=== PATIENT | female | born 1995 | race Caucasian/White ===

== ENCOUNTER 2017-12-10 11:07 | Outpatient (CLI) | payer MEDICAID | END 2017-12-10 13:17 | disposition home or self-care (01) | LOC: OBT 11:07 → L-D 11:08 → OBT 13:17 | DX: O76 Abnormality in fetal heart rate and rhythm complicating labor and delivery (principal); Z3A.39 39 weeks gestation of pregnancy | CPT/HCPCS: 76818 ==

== ENCOUNTER 2017-12-13 12:36 | Outpatient (CLI) | payer MEDICAID | END 2017-12-13 15:00 | disposition home or self-care (01) | LOC: OBT 12:36 → L-D 12:37 → OBT 15:00 | DX: O76 Abnormality in fetal heart rate and rhythm complicating labor and delivery (principal); Z3A.39 39 weeks gestation of pregnancy | CPT/HCPCS: 76818 ==

== ENCOUNTER 2017-12-14 23:45 | Inpatient (IN) | payer MEDICAID ==
[2017-12-15] MEDS ORDERED: LACTATED RINGER'S 1,000 ML IV (00:47)
[2017-12-15] MEDS ORDERED: MISOPROSTOL 200 MCG TAB PR ×2 (01:00→17:30)
[2017-12-15] MEDS ORDERED: CARBOPROST 250 MCG INJ IM ×2 (01:00→17:30)
[2017-12-15] MEDS ORDERED: BUTORPHANOL 1 MG INJ IV (01:00)
[2017-12-15] MEDS ORDERED: BUTORPHANOL 2 MG INJ IV (01:00)
[2017-12-15] MEDS ORDERED: METHYLERGONOVINE 0.2 MG INJ IM ×2 (01:00→17:30)
[2017-12-15] MEDS ORDERED: OXYTOCIN 30 UNITS/LR 500 ML IV ×2 (01:00→17:30)
[2017-12-15] MEDS: LACTATED RINGER'S 1,000 ML IV ×4 (01:10→09:30)
[2017-12-15 01:41] LABS: ADD MAN DIFF? NO
[2017-12-15 01:46] LABS: BASOPHIL # 0.1 10^3/ul (0.0-0.1); BASOPHILS % 0.4 % (0.0-2.0); EOSINOPHILS # 0.1 10^3/ul (0.0-0.5); EOSINOPHILS % 0.6 % (0.0-7.0); HEMATOCRIT 35.7 % (37.0-47.0); LYMPHOCYTES # 2.3 10^3/ul (0.8-2.9); LYMPHOCYTES % 17.2 % (15.0-51.0); MEAN CORPUSCULAR HEMOGLOBIN 28.7 pg (29.0-33.0); MEAN CORPUSCULAR HGB CONC 33.6 g/dl (32.0-37.0); MEAN CORPUSCULAR VOLUME 85.4 fl (82.0-101.0); MONOCYTES % 7.2 % (0.0-11.0); NEUTROPHIL # 9.8 10^3/ul (1.6-7.5); NEUTROPHILS % 74.2 % (39.0-77.0); PLATELET COUNT 317 10^3/UL (140-415); RED BLOOD COUNT 4.18 10^6/ul (4.20-5.40); RED CELL DISTRIBUTION WIDTH 14.5 % (11.5-14.5)
[2017-12-15 01:46] LABS: WHITE BLOOD COUNT 13.2 10^3/ul (4.8-10.8)
[2017-12-15 02:07] LABS: INR 0.96; PROTIME 12.9 Sec (11.9-14.9)
[2017-12-15 02:32] LABS: HEPATITIS B SURFACE ANTIGEN NEGATIVE (NEGATIVE)
[2017-12-15] MEDS ORDERED: FENTAnyl 2MCG/ML-ROPIV 0.2% 100 ML (04:46)
[2017-12-15] MEDS: FENTAnyl 2MCG/ML-ROPIV 0.2% 100 ML BAG EPI (07:17)
[2017-12-15] MEDS ORDERED: NALOXONE (0.4 MG/ML) INJ IV (07:30)
[2017-12-15] MEDS ORDERED: TERBUTALINE 1 ML (08:25)
[2017-12-15] MEDS: TERBUTALINE 1 MG/ML INJ SC (08:30)
[2017-12-15] MEDS: OXYTOCIN 30 UNITS/LR 500 ML IV ×3 (13:25→14:45)
[2017-12-15] MEDS: LIDOCAINE 1% (MPF) 30 ML INJ INJ (13:26)
[2017-12-15] MEDS: MINERAL OIL LIGHT 10 ML VIAL TOP (13:27)
[2017-12-15] MEDS ORDERED: HYDROCODONE/APAP (5/325) TAB PO (17:30)
[2017-12-15] MEDS ORDERED: ZOLPIDEM 5 MG TAB PO (17:30)
[2017-12-15] MEDS: BENZOCAINE 20% 56 ML SPRAY TOP (17:34)
[2017-12-15] MEDS: LANOLIN 7 GM TUBE TOP (17:35)
[2017-12-15] MEDS: DIBUCAINE 1% 30 GM OINT PR (17:35)
[2017-12-15] MEDS: CEPHALEXIN 500 MG CAP PO ×2 (17:35→23:25)
[2017-12-15] MEDS: WITCH HAZEL/GLYCERIN PAD PR (17:39)
[2017-12-15] MEDS: IBUPROFEN 600 MG TAB PO ×2 (17:39→23:25)
[2017-12-15] MEDS: LACTATED RINGER'S 1,000 ML IV* (19:07)
[2017-12-15] MEDS: SENNA/DOCUSATE NA (8.6MG/50MG) TAB PO (21:15)
[2017-12-15] MEDS: MAGNESIUM HYDROXIDE 30ML CUP PO (21:15)
[2017-12-15 22:12] LABS: RAPID PLASMA REAGIN NONREACTIVE (NR)
[2017-12-16] MEDS: IBUPROFEN 600 MG TAB PO ×4 (05:43→23:50)
[2017-12-16] MEDS: CEPHALEXIN 500 MG CAP PO ×4 (05:44→23:50)
[2017-12-16] MEDS: LACTATED RINGER'S 1,000 ML IV* ×3 (08:46→17:19)
[2017-12-16] MEDS: MAGNESIUM HYDROXIDE 30ML CUP PO ×2 (09:13→21:36)
[2017-12-16] MEDS: SENNA/DOCUSATE NA (8.6MG/50MG) TAB PO ×2 (09:13→21:37)
[2017-12-16] MEDS: HYDROCODONE/APAP (5/325) TAB PO (09:14)
[2017-12-16] MEDS: SERTRALINE 50 MG TAB PO (09:14)
[2017-12-16 09:31] LABS: ADD MAN DIFF? NO
[2017-12-16 09:32] LABS: BASOPHILS % 0.3 % (0.0-2.0); EOSINOPHILS # 0.1 10^3/ul (0.0-0.5); EOSINOPHILS % 0.9 % (0.0-7.0); HEMATOCRIT 25.8 % (37.0-47.0); HEMOGLOBIN 8.6 g/dl (12.0-16.0); LYMPHOCYTES # 2.6 10^3/ul (0.8-2.9); LYMPHOCYTES % 18.3 % (15.0-51.0); MEAN CORPUSCULAR HEMOGLOBIN 28.9 pg (29.0-33.0); MEAN CORPUSCULAR HGB CONC 33.3 g/dl (32.0-37.0); MEAN CORPUSCULAR VOLUME 86.6 fl (82.0-101.0); MEAN PLATELET VOLUME 10.4 fl (7.4-10.4); MONOCYTE # 0.7 10^3/ul (0.3-0.9); MONOCYTES % 5.3 % (0.0-11.0); NEUTROPHIL # 10.5 10^3/ul (1.6-7.5); NEUTROPHILS % 74.8 % (39.0-77.0); PLATELET COUNT 199 10^3/UL (140-415); RED BLOOD COUNT 2.98 10^6/ul (4.20-5.40); RED CELL DISTRIBUTION WIDTH 15.2 % (11.5-14.5)
[2017-12-17] MEDS: IBUPROFEN 600 MG TAB PO ×2 (05:30→11:58)
[2017-12-17] MEDS: CEPHALEXIN 500 MG CAP PO ×2 (05:30→11:58)
[2017-12-17] MEDS: DIPHTH/TET/ACEL PERTUSS (ADULT) 0.5 ML VIAL IM* (09:00)
[2017-12-17] MEDS: MEASLES,MUMPS,RUBELLA VACCINE INJ SC* (09:00)
[2017-12-17] MEDS: SENNA/DOCUSATE NA (8.6MG/50MG) TAB PO (09:00)
[2017-12-17] MEDS: VARICELLA VACCINE LIVE/PF 1,350 UNIT/0.5 ML ML SC* (09:00)
[2017-12-17] MEDS: MAGNESIUM HYDROXIDE 30ML CUP PO (09:00)
[2017-12-17] MEDS: SERTRALINE 50 MG TAB PO (09:09)
== END 2017-12-17 17:30 | disposition home or self-care (01) | DRG 775 ==
LOC: OBT 23:45 → L-D 23:45 → OBT 12-15 00:30 → L-D 12-15 00:30 → PP1 12-15 14:58
PROVIDERS: Obstetrics & Gynecology
PROC: 10D07Z6 Extraction of Products of Conception, Vacuum, Via Natural or Artificial Opening (ICD-10-PCS; principal; 2017-12-15)
PROC: 0UQMXZZ Repair Vulva, External Approach (ICD-10-PCS; 2017-12-15)
PROC: 0UQGXZZ Repair Vagina, External Approach (ICD-10-PCS; 2017-12-15)
DX: O76 Abnormality in fetal heart rate and rhythm complicating labor and delivery (principal); O77.0 Labor and delivery complicated by meconium in amniotic fluid; O70.0 First degree perineal laceration during delivery; O99.344 Other mental disorders complicating childbirth; F41.9 Anxiety disorder, unspecified; O36.5930 Maternal care for other known or suspected poor fetal growth, third trimester, not applicable or unspecified; Z3A.39 39 weeks gestation of pregnancy; Z37.0 Single live birth
CPT/HCPCS: 62319; 85025; 85610; 85730; 86592; 86850; 86900; 86901; 87340; 88307; 93970; 99464